=== PATIENT | male | born 2000 | race Hispanic/Latino ===

== ENCOUNTER 2018-07-09 10:11 | Emergency (ER) | payer OTHER, SELFPAY ==
[2018-07-09 10:34] VITALS: BP 140/80; PULSE 90; RESP 18; TEMP 37.1; O2SAT 99; BMI 23.3
--- NOTE | 2018-07-09 10:43 | ED.BURNSMOKE ---
HPI - Burn/Smoke Inhalation General Chief complaint: Burn/Smoke Inhalation Stated complaint: HAND INJURY WITH LIQUID NITROGEN Time Seen by Provider: 07/09/18 10:43 Source: patient Mode of arrival: ambulatory Limitations: no limitations History of Present Illness HPI Narrative: Patient is a left-handed young male who presents with all right pinky and ring finger blistering. 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 He noticed a burn then however the blistering got significantly worse today. He denies numbness or tingling or pain. MD Complaint: burn Related Data Allergies Allergy/AdvReac Type Severity Reaction Status Date / Time Penicillins Allergy Hives Verified 07/09/18 10:39 Review of Systems Review of Systems All systems reviewed & are unremarkable except as noted in HPI and below Constitutional Denies chills, Denies fever(s), Denies lethargy and Denies weakness Musculoskeletal Denies numbness and Denies tingling Integumentary/Breasts Reports as per HPI, Reports skin swelling and Reports wounds Neurologic Denies numbness, Denies tingling and Denies weakness [facility] Medical History Healthy adult (Acute) Social History Smoking Status: Never smoker alcohol intake: never substance use type: does not use Comment: Tetanus up-to-date Exam Initial Vital Signs Initial Vital Signs: Vital Signs Temperature 98.7 F 07/09/18 10:34 Pulse Rate 90 07/09/18 10:34 Respiratory Rate 18 07/09/18 10:34 Blood Pressure 140/80 H 07/09/18 10:34 Pulse Oximetry 99 07/09/18 10:34 GENERAL: Well-appearing, well-nourished and in no acute distress. CARDIOVASCULAR: peripheral pulses in tact, cap refill <2 sec RESPIRATORY: No respiratory distress, speaks in full sentences without difficulty EXTREMITIES: Normal range of motion, no clubbing or edema. Neurovascularly intact Decreased range of motion of the right pinky finger due to a blistering no pain sensation intact at the distal tip cap refill less than 2 sec NEUROLOGICAL: Cranial nerves II through XII grossly intact. Normal gait and speech. SKIN: Warm, dry, no petechiae, no rashes or lesions. Skin Hand Right Back: 1. Circumferential blistering 2. Small amount of blistering noted on ring finger as well Extrem Hand Right Front: 1. Blackening a blister circumferential 2. Blister noted ring finger 3. Blister 4. Blister 5. Blister Course Vital Signs - 8 hr 07/09/18 10:34 Temperature 98.7 F Pulse Rate 90 Respiratory Rate 18 Blood Pressure 140/80 H Pulse Oximetry 99 MDM - Burn/Smoke Inhalation MDM Narrative Medical decision making narrative: I spoke with Dr. Evans, burn fellow at at [facility] who has reviewed the images, with the patient's permission the email. Recommends patient be transferred to [facility] immediately for debridement. Possible surgery possible admission. Discharge Plan Departure Patient Disposition: [facility] Clinical Impression: Burn of right hand including fingers Activity Restrictions/Additional Instructions: -go directly to a [facility] they are expecting you Do not eat or drink Do will likely require admission and possible surgery however these decisions are to be made by the burn physician
[2018-07-09 11:49] VITALS: BP 158/98; PULSE 73; RESP 16; TEMP 37; O2SAT 100
== END 2018-07-09 11:49 | disposition short-term general hospital (02) ==
PROVIDERS: Emergency Provider Emergency Medicine
DX: T23.001A Burn of unspecified degree of right hand, unspecified site, initial encounter (principal); T23.031A Burn of unspecified degree of multiple right fingers (nail), not including thumb, initial encounter; W93.11XA Contact with liquid air, initial encounter
CPT/HCPCS: 99282

== ENCOUNTER → 2018-07-22 14:10 | Outpatient (CLI) | payer OTHER, SELFPAY | PROVIDERS: PCP General Practice; Visit Provider Internal Medicine | DX: T23.631A Corrosion of second degree of multiple right fingers (nail), not including thumb, initial encounter (principal) | CPT/HCPCS: 16020 ==

== ENCOUNTER → 2018-07-29 13:11 | Outpatient (CLI) | payer OTHER, SELFPAY ==
--- NOTE | 2018-07-29 | OV.WND_ITS ---
Progress Note Details Patient Name: Jay Fine Patient Number: [id number] PatientPatientDate: 07/29/2018 Clinician: Aura Arciniega Physician / Flat Hammerer: oJnathon Mehta SUBJECTIVE Chief Complaint This information was obtained from the patient Right Hand Chemical burn 07/07/18. Allergies penicillin (Severity: Moderate, Reaction: Rash) HPI This information was obtained from the patient 07/29/18. Seen by Dr. Mehta. The patient does not report pain or significant drainage associated with the right hand chemical burn since his last visit. 07/22/18. Seen by Dr. Mehta. The patient does not report pain or significant drainage associated with the right hand chemical burn since his last visit. He was not able to start his doxycycline as prescribed due to an error in the e-prescription being sent. 07/15/18. Seen by Dr. Mehta. The patient's new to our clinic and presents with a right hand chemical burn than occurred about 9 days ago when he spilled liquid nitrogen on the palm of his gloved hand while assisting at the [facility]. He does not report significant pain today and was seen at the [facility] burn center without an explicit plan other than to follow up at this week in clinic. Complaints and Symptoms This information was obtained from the patient Patient complains of: General Notes: I have reviewed and concur with the Review of Systems and Past Family Social History documents completed by the clinician, I have reviewed and concur with the Wound Assessment document completed by the clinician Integumentary (Hair/Skin/Nails): Open Sore Prior Wound History: Drainage, Erythema, Pain Patient denies complaints or symptoms related to: Constitutional Symptoms (General Health): Chills, Fever Hematologic/Lymphatic: Bleeding / Clotting Disorders, Bleeding Tendency OBJECTIVE Constitutional Vital signs reviewed and noted. Height/Length: 66 in (167.64 cm), Weight: 145 lbs (65.91 kgs), BMI: 23.4, Temperature: 98.3 ?F (36.83 ?C), Pulse: 63 bpm, Respiratory Rate: 18 breaths/min, Blood Pressure: 131/85 mmHg, Pulse Oximetry: 98 %. Ears, Nose, Mouth, and Throat: No clinically significant hearing loss on informal examination. Integumentary (Hair, Skin) Refer to appropriate clinician wound documentation for this visit; blistering noted in the periwound area/s. Wound #6 Right Finger - fifth is an acute Full Thickness Burn, chemical and has received a status of Not Healed. Subsequent wound encounter measurements are 0.4cm length x 0.7cm width x 0.1cm depth, with an area of 0.28 sq cm and a volume of 0.028 cubic cm. No tunneling has been noted. No sinus tract has been noted. No undermining has been noted. There is a small amount of serosanguineous drainage noted which has no odor. The patient reports a wound pain of level 0/10. The wound margin is irregular. Wound bed has Yes epithelialization, No eschar, Yes slough, Yes bright red, pink, firm granulation. The periwound skin texture is normal. The periwound skin moisture is normal. The periwound skin color is normal. The temperature of the periwound skin is WNL. Periwound skin does not exhibit signs or symptoms of infection. Local Pulse is Normal. Neurological: Cranial nerves grossly intact with symmetric function normal by informal observation.. ASSESSMENT Active Problems ICD-10 (Encounter Diagnosis) T23.201D - Burn of second degree of right hand, unspecified site, subsequent encounter PROCEDURES Wound #6 Wound #6 (Burn, chemical) is located on the right finger - fifth. A selective debridement with a total area debrided of 0.28 sq cm was performed by Jonathon Mehta MD. Dermis and Epidermis were removed. The following instrument(s) were used: forceps and scissors. Pain control was achieved using 4% Lido. A time out was conducted prior to the start of the procedure. No bleeding occurred. The procedure was tolerated well with a pain level of 0 throughout and a pain level of 0 following the procedure. Post Debridement Measurements: 0.4cm length x 0.7cm width x 0.2cm depth; with an area of 0.28 sq cm and a volume of 0.056 cubic cm; PLAN Wound Orders: Wound #6 Right Finger - fifth Anesthetic Topical Xylocaine to wound bed. - In clinic. Cleanser Cleanse Wound: - Normal saline and gauze. May use distilled water at home. May Shower. - Keep covered in shower with glove, or cast protector. Topical Treatments Antibiotic/Antimicrobial Ointment/Cream. - Triple antibiotic ointment. Dressings Primary dressing: - Foam to cover. Cover and secure with: - Conform wrap gauze, and netting. Change Dressing: - Every other day. Follow-Up Appointments Return Appointment: - - One week. Other information: If you develop fever, chills, increased pain, drainage, redness or swelling please call our office. If after hours, respond to the ER. Should you experience any significant changes in your wound(s) or have any questions regarding your home care instructions please contact the wound center @ [phone]. If after hours, contact your primary care physician or go to the hospital emergency room. Scribing Attestation I attest, as the nurse, that I scribed these orders for the physician. I've reviewed the clinician's documentation and agree with the evaluation and plan as written. In addition the patient's wound demonstrates evidence of non-viable devitalized tissue which will continue to benefit from sharp debridement to help promote granulation and expedite healing. Electronic Signature(s) Signed By: Date: Jonathon Mehta MD 07/30/2018 06:42:26 Entered By: Jonathon Mehta on 07/30/2018 06:28:38
== END ==
PROVIDERS: PCP General Practice; Visit Provider Internal Medicine
DX: T23.221A Burn of second degree of single right finger (nail) except thumb, initial encounter (principal)
CPT/HCPCS: 16020

== ENCOUNTER → 2018-08-04 14:17 | Outpatient (CLI) | payer OTHER, SELFPAY | PROVIDERS: PCP General Practice; Visit Provider Internal Medicine | DX: T23.221D Burn of second degree of single right finger (nail) except thumb, subsequent encounter (principal) | CPT/HCPCS: 99212 ==

== ENCOUNTER 2018-08-12 12:30 | Outpatient (RCR) | payer OTHER, SELFPAY ==
--- NOTE | 2018-07-20 10:38 | OT.OP.EVAL ---
Visit Care Team Role Provider Type Roberto Angulo MD Attending Provider Non-Staff Primary Care Provider Specialty: Family Practice Address: [address] [place] [address], [id number] Email: Occupational Therapy Initial Evaluation OT Outpatient Adult Evaluation Start: 07/20/18 09:42 Freq: Status: Active Protocol: Document 07/15/18 13:48 AMS (Rec: 07/20/18 10:38 AMS [email or web address]) General Information Visit Start Time 12:30 Visit Stop Time 13:15 Total Visit Minutes 45 Visit Number [id number] Plan of Care Dates 07/15/18-10/07/18 Insurance Information ; 12 visits authorized Treatment Setting Outpatient Care Note Type Initial Evaluation Referring Physician Roberto Angulo MD Reason for Referral Chemical burn to right hand, fingers. 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 Patient reported that he was wearing the appropriate gloves; however, the gloves became saturated and he suffered a burn. By , July 09, pt's right hand and fingers were significantly more swollen then day of initial onset of symptoms. Thus, he was taken to the ER. He was transferred from [facility] to [facility]. At [facility] he underwent surgical debridement. Since debridement, pt has been changing dressings daily and intermittently completing range of motion exercises throughout the day (prayer pose, fist, and hook fist). Pt has appt w/ wound care clinic following OT initial evaluation today. Pt completed [facility] History form. Completed form placed in paper chart; pt indicated taking Oxycodone for pain (10 mg). History of Therapy Instructed on basic range of motion exercises at time of debridement. No other therapy. See above. Therapy Pain Assessment When Pain Assessed pre-tx Pain Present Pain Reported Right Finger Intensity 2 Scale Used Numeric (1 - 10) Patient Questionnaires Quick Dash UE Score 72.7 Quick Dash UE Impairment 60 to 79% Impaired (Score 60- 79) IADLs Comments Impaired Vocational Ability Duties modified Skill Level Impaired Integument Observations Pictures taken at time of initial evaluation. See paper chart for details. Bandaging removed and replaced w/ new bandages. Bandaging of 5th digit not removed on this treatment date; will remove bandaging and begin treatment as appropriate (increased healing of wound). Receiving Wound Care Yes Observations Swelling Location R hand/digits Functional Wrist/Hand Scan Yes/No No: Impaired Comment Right Yes/No No: Stiffness of digits present Comment Right Yes/No No: Impaired Comment Right Overall Observations Stiffness of digits of R hand due to wounds. Adduction/piggy backing of the R 5th digit observed w/ formation of straight fist and standard fist. Goals Objective Measurements Decreased frequency w/ execution of recommended home exercises/ROM. Preference for active vs passive ROM exercises at this time (thus, prayer pose modified to increase compliance). Guarding of R hand/digits. Protective posturing. Treatment Home exercise program initiated. Focus on active range of motion and reviewed importance of completing range of motion exercise on a hourly, daily basis. Continued hook fist, standard fist recommended, as well as TT w/ R hand blocking and use of towel and active digit extension use of TT. Patient denied questions. Short Term Goals 1. 0-70 degrees R second digit DIPJ AROM 2. 0-10 degrees R second digit MCPJ active hyperextension 3. 0-10 degrees R third digit MCPJ active hyperextension 4. 0-10 degrees R fourth digit MCPJ active hyperextension 5. Pt will be able to execute straight fist x 5 repetitions with the right hand, without use of compensatory patterns, in preparation for large object manipulation with active engagement of the 5th digit. Care Home Goals 1. Pt will be able to return to full-time active duty without restrictions. 2. Pt will demonstrate improved functional abilities of non-dominant R hand, as evidenced by score of 5.0 or less on QuickDASH UE Outcome Measure. 3. Pt will be mod I with HEP. 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 Patient reported that he was wearing the appropriate gloves; however, the gloves became saturated and he suffered a burn. By July 09, pt's right hand and fingers were significantly more swollen then day of onset . Thus, he was taken to the ER . He was transferred from [facility] to [facility]. At [facility] he underwent surgical debridement. Since debridement, pt has been changing dressings daily and intermittently completing range of motion exercises throughout the day (prayer pose, fist, and hook fist). Pt has appt w/ wound care clinic following OT initial evaluation today. Pt indicated taking Oxycodone for pain (10 mg). PMH: Nothing listed PLOF: Independent w/ completion of BADLS and IADLS; active duty w/ no restrictions. Evaluation findings: L hand dominant young male; wounds of the R hand; (+) changing of dressings on daily basis as per recommended; decreased frequency of completion of home range of motion exercises ; adduction/piggy backing of the R 5th digit observed w/ formation of fist; preference for active vs passive ROM exercises at this time (thus, prayer pose modified); pain at rest; stiffness of digits/ hand; decreased range of motion of digits of R hand; protective/guarding of R hand; swelling of R hand; decreased independence w/ active engagement in daily meaningful activities. Pt would likely benefit from skilled outpt OT to increase functional independence and ability to engage in meaningful activities without limitations, including active duty assignments, with active incorporation of the right hand. Home Exercise Program Home exercise program initiated. Focus on active range of motion and reviewed importance of completing range of motion exercise on a hourly, daily basis. Continued hook fist, standard fist recommended, as well as TT w/ R hand blocking and use of towel and active digit extension use of TT. Patient denied questions. Comment 12 wks; dependent upon rate of healing of wounds Treatment Frequency Once a Week Comment increase to 2 x wk; as wounds heal Therapeutic Contents Active Range of Motion Client Education Functional Activities Home Exercise Program Manual Therapy Education Neuromuscular Re-Education Self-Care Stretching/Flexibility Activities Therapeutic Activities Therapeutic Exercises Modalities Sensory Re-education Modalities As Needed As Prescribed Types of Modalities Contrast Bath E-Stim Functional Stimulation (FES) Ice Massage Skin Care Bandaging Ultrasound Patient Instruction Home Exercise Program Plan of Care Questions/Concerns Other Patient Recommendations Continue with Current Program Advance per Rehabilitation Protocol Other Suggested Referrals Wound care Occupational Therapy Assessment OT Outpatient Range of Motion Start: 07/20/18 09:42 Freq: Status: Active Protocol: Document 07/15/18 13:48 AMS (Rec: 07/20/18 10:38 AMS [email or web address]) ROM - Finger Goniometric Finger Measured in Degrees Right Second Finger ROM WFL No PIP Flexion Active (degrees) 113 PIP Extension Active (degrees) 0 DIP Flexion Active (70-90 degrees) 63 L DIP Extension Active (0 degrees) 0 H Left Second Finger ROM WFL Yes ROM Limitations Comments Right finger ROM limitations 0 degrees active L 2nd - 5th digit hyperextension Will need to take additional ROM measurements as wounds heal/as able
--- NOTE | 2018-07-22 14:19 | OT.OP.TRT ---
Visit Care Team Role Provider Type Roberto Angulo MD Attending Provider Non-Staff Primary Care Provider Specialty: Family Practice Address: [address] [place] [address], [id number] Email: Occupational Therapy Treatment Note OT Outpatient Treatment Note - Adult Start: 07/20/18 09:42 Freq: Status: Active Protocol: Document 07/22/18 13:49 AMS (Rec: 07/22/18 14:01 AMS [email or web address]) OT Outpatient Adult Treatment Note Session Time Visit Start Time 12:30 Visit Stop Time 13:15 Total Visit Minutes 45 Visit Information Visit Number 12/[id number] Plan of Care Dates 07/15/18-10/07/18 Insurance Information ; 12 visits authorized Setting Treatment Setting Outpatient Care Visit Type Note Type Treatment Note General Information General Information 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 Patient reported that he was wearing the appropriate gloves; however, the gloves became saturated and he suffered a burn. By July 09, pt's right hand and fingers were significantly more swollen then day of initial onset of symptoms. Thus, he was taken to the ER. He was transferred from [facility] to [facility]. At [facility] he underwent surgical debridement. Since debridement, pt has been changing dressings daily and intermittently completing range of motion exercises throughout the day (prayer pose, fist, and hook fist). Pt has appt w/ wound care clinic following OT initial evaluation today. Pt completed [facility] History form. Completed form placed in paper chart; pt indicated taking Oxycodone for pain (10 mg). - Subjective Identification Type Name Picture Observations I have an appointment with wound care today at 2:00 per Jay. Yes I have been doing my exercises. Chief Complaint(s) Restricts Loss of Function Marked Degree Effect on Activity Marked Degree Effect on Daily Life Marked Degree Patient/Caregiver Compliance with Home Good Exercise Program - Objective Objective Measurements ROM measurements taken for R hand. See ROM section for details. Slight medial rotation of R second digit; instructed on passive exercise . Pt denied questions. Short Term Goals 1. 0-80 degrees R second digit DIPJ AROM. 07/22/18= GOAL UPGRADED 2. 0-20 degrees R fourth digit MCPJ active hyperextension. = GOAL UPGRADED 3. 0-20 degrees R fifth digit MCPJ active hyperextension. 10/27= GOAL UPGRADED 4. 0-90 degrees R fifth digit MCPJ active flexion. 07/22/18= New Goal 5. 0-90 degrees R fifth digit PIPJ active flexion. 07/22/18= New Goal 6. 0-70 degrees R fifth digit DIPJ active flexion. 07/22/18= New Goal 7. Pt will be able to execute straight fist x 5 repetitions with R hand, without use of compensatory patterns, in preparation for large object manipulation with active engagement of the 5th digit. = 25% met GOALS MET 0-70 degrees R second digit DIPJ AROM *MET 07/22/18 (0-77) 0-10 degrees R second digit MCPJ active hyperextension * MET 07/22/18 (0-53) 0-10 degrees R third digit MCPJ active hyperextension * MET 07/22/18 (0-53) 0-10 degrees R fourth digit MCPJ active hyperextension * MET 07/22/18 (0-10) [employer] Goals 1. Pt will be able to return to full-time active duty without restrictions. 2. Pt will demonstrate improved functional abilities of non-dominant R hand, as evidenced by score of 5.0 or less on QuickDASH UE Outcome Measure. 3. Pt will be mod I with HEP. 07/22/18= HEP upgraded - Exercises 2 Descriptor ROM measurements taken Active tendon gliding exercises 1 Descriptor HEP Focus on maintaining palmar space. Instructed in passive ROM exercise. Pt denied questions. Began education re: sensory program as soon as palm and R tip/pad wounds fully heal. Will need to review. Manual Therapy Manual Therapy Joint mobs to address medial rotation of R 2nd digit; right 2nd ROM w/ focus on DIPJ flex . Palmar tightness noted radially; manual therapy to maintain palmar space. Unable to begin scar tissue mobilization at this time. Wounds still healing. - Assessment Patient Response to Treatment Good Rehab Potential Good Impairments Identified ADLs Coordination/Dexterity Flexibility Functional Activities Integumentary Status Motor Function Weakness Range of Motion Recreational Activities Meaningful Activities Stiffness Swelling Soft Tissue Mobility Motor Planning Eye-Hand Coordination Assessment of Overall Progress Improving Assessment of Improvement Improving active range of motion; improving carry-over of HEP. This is evidenced by pt meeting short term goals on this treatment date. Upgrading of goals appropriately. Medial rotation of R 2nd digit given healing of distal palmar wound; thus, instructed in PROM exercise to maintain palmar space. Recommend upgrading HEP/ exercises/activities as able given healing wounds. Home Exercise Program Please refer to treatment section of note for specific details. Upgraded on this date . Reviewed with Patient/Caregiver Goals Progress Being Made Home Exercise Program Patient/Caregiver Understanding Good - Plan Therapy Recommendations Continue with Current Program Advance per Rehabilitation Protocol Occupational Therapy Assessment OT Outpatient Range of Motion Start: 07/20/18 09:42 Freq: Status: Active Protocol: Document 07/22/18 13:49 AMS (Rec: 07/22/18 14:01 AMS [email or web address]) ROM - Finger Goniometric Finger Measured in Degrees Left Fifth Finger ROM WFL Yes Left Fourth Finger ROM WFL Yes Left Third Finger ROM WFL Yes Right Fifth Finger ROM WFL No MCP Flexion Active (degrees) 80 MCP Extension Active (degrees) 8 PIP Flexion Active (degrees) 80 PIP Extension Active (degrees) 0 DIP Flexion Active (70-90 degrees) 53 L DIP Extension Active (0 degrees) 0 H Right Fourth Finger ROM WFL No MCP Flexion Active (degrees) 103 MCP Extension Active (degrees) 10 PIP Flexion Active (degrees) 97 PIP Extension Active (degrees) 0 DIP Flexion Active (70-90 degrees) 72 DIP Extension Active (0 degrees) 0 H Right Third Finger ROM WFL No MCP Flexion Active (degrees) 120 MCP Extension Active (degrees) 53 PIP Flexion Active (degrees) 120 PIP Extension Active (degrees) 0 DIP Flexion Active (70-90 degrees) 83 DIP Extension Active (0 degrees) 0 H Right Second Finger ROM WFL No MCP Flexion Active (degrees) 112 MCP Extension Active (degrees) 53 PIP Flexion Active (degrees) 120 PIP Extension Active (degrees) 0 DIP Flexion Active (70-90 degrees) 77 DIP Extension Active (0 degrees) 0 H Left Second Finger ROM WFL Yes ROM Limitations Comments Initial evaluation: R 2nd PIPJ 0-113 R 2nd DIPJ 0-63
--- NOTE | 2018-07-29 13:29 | OT.OP.TRT ---
Visit Care Team Role Provider Type Roberto Angulo MD Attending Provider Non-Staff Primary Care Provider Specialty: Family Practice Address: [address] [place] [address], [id number] Email: Occupational Therapy Treatment Note OT Outpatient Treatment Note - Adult Start: 07/20/18 09:42 Freq: Status: Active Protocol: Document 07/29/18 13:14 AMS (Rec: 07/29/18 13:29 AMS [email or web address]) OT Outpatient Adult Treatment Note Session Time Visit Start Time 12:28 Visit Stop Time 13:12 Total Visit Minutes 44 Visit Information Visit Number [id number] Plan of Care Dates 07/15/18-10/07/18 Insurance Information ; 12 visits authorized Setting Treatment Setting Outpatient Care Visit Type Note Type Treatment Note General Information General Information 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 Patient reported that he was wearing the appropriate gloves; however, the gloves became saturated and he suffered a burn. By July 09, pt's right hand and fingers were significantly more swollen then day of initial onset of symptoms. Thus, he was taken to the ER. He was transferred from [facility] to [facility]. At [facility] he underwent surgical debridement. Since debridement, pt has been changing dressings daily and intermittently completing range of motion exercises throughout the day (prayer pose, fist, and hook fist). Pt has appt w/ wound care clinic following OT initial evaluation today. Pt completed [facility] Health History form. Completed form placed in paper chart; pt indicated taking Oxycodone for pain (10 mg). - Subjective Identification Type Name Picture Observations I have an appointment with wound care right after this at 1:15 per Jay. Yes I have been doing my exercises. Patient/Caregiver Compliance with Home Good Exercise Program - Objective Objective Measurements MMT of wrist/fingers taken for right hand/wrist; please refer to Strength Testing section for details. Decreased R wrist/finger strength. Decreased active DIPJ flexion of 4th digit; initiated exercise. Pt denied questions. Short Term Goals 1. 0-80 degrees R second digit DIPJ AROM. 07/22/18= GOAL UPGRADED 2. 0-20 degrees R fourth digit MCPJ active hyperextension. = GOAL UPGRADED 3. 0-20 degrees R fifth digit MCPJ active hyperextension. 10/27= GOAL UPGRADED 4. 0-90 degrees R fifth digit MCPJ active flexion. 07/22/18= New Goal 5. 0-90 degrees R fifth digit PIPJ active flexion. 07/22/18= New Goal 6. 0-70 degrees R fifth digit DIPJ active flexion. 07/22/18= New Goal 7. Pt will be able to execute straight fist x 5 repetitions with R hand, without use of compensatory patterns, in preparation for large object manipulation with active engagement of the 5th digit. = 25% met GOALS MET 0-70 degrees R second digit DIPJ AROM *MET 07/22/18 (0-77) 0-10 degrees R second digit MCPJ active hyperextension * MET 07/22/18 (0-53) 0-10 degrees R third digit MCPJ active hyperextension * MET 07/22/18 (0-53) 0-10 degrees R fourth digit MCPJ active hyperextension * MET 07/22/18 (0-10) Back Closer Goals 1. Pt will be able to return to full-time active duty without restrictions. 2. Pt will demonstrate improved functional abilities of non-dominant R hand, as evidenced by score of 5.0 or less on QuickDASH UE Outcome Measure. 3. Pt will be mod I with HEP. 07/29/18= HEP upgraded - Exercises 6 Descriptor Resisted forearm sup/pronation Side Right Body Position Sitting Sets 2 Repetitions 10 Resistance Provided by therapist Complexity Upgraded 5 Descriptor Resisted finger abd/add Side Right Body Position Sitting Sets 2 Repetitions 10 Resistance Provided by therapist Complexity Upgraded 4 Descriptor Resisted wrist movements RD, UD, flexion, extension Side Right Body Position Sitting Sets 2 Repetitions 10 Resistance Provided by therapist Complexity Upgraded 3 Descriptor Resisted digit ext/flex (exclusion of 5th digit) Side Right Body Position Sitting Sets 2 Repetitions 10 Resistance Provided by therapist Complexity Upgraded 2 Descriptor Active tendon gliding exercises 1 Descriptor HEP Instructed in 'bear claw' exercise to address flexion of 4th DIPJ; instructed in resisted finger/wrist exercises w/ use of towel (as needed for skin protection) and contralateral hand (left hand). Instructed in grading resistance for digit extension . RD, UD, wrist flex, wrist ext covered. Patient denied questions. Manual Therapy Manual Therapy Joint mobs to address medial rotation of R 2nd digit. Decreased palmar tightness noted radially; recommend continue to monitor. 4th digit DIPJ flex, tendon gliding. - Assessment Patient Response to Treatment Good Rehab Potential Good Impairments Identified ADLs Coordination/Dexterity Flexibility Functional Activities Integumentary Status Motor Function Weakness Range of Motion Recreational Activities Meaningful Activities Stiffness Swelling Soft Tissue Mobility Motor Planning Eye-Hand Coordination Assessment of Overall Progress Improving Assessment of Improvement Improving carry-over of HEP. Upgraded HEP. Decreased strength of right forearm, wrist, fingers. Decreased functional abilities of the right hand compared to PLOF. Wounds are still healing at this time; recommend progressing exercises as able. Home Exercise Program Please refer to treatment section of note for specific details. Upgraded on this date . Reviewed with Patient/Caregiver Goals Progress Being Made Home Exercise Program Patient/Caregiver Understanding Good - Plan Therapy Recommendations Continue with Current Program Advance per Rehabilitation Protocol Occupational Therapy Assessment OT Outpatient Muscle Testing Start: 07/20/18 09:42 Freq: Status: Active Protocol: Document 07/29/18 13:14 AMS (Rec: 07/29/18 13:29 AMS [email or web address]) Elbow/Forearm Strength Elbow and Forearm Manual Muscle Testing Left Pronation 5 Normal Supination 5 Normal Right Pronation 4+ Good+ Supination 4- Good- Wrist Strength Wrist Manual Muscle Testing Left Flexion (C7) 5 Normal Extension (C6) 5 Normal Ulnar Deviation 5 Normal Radial Deviation 5 Normal Right Flexion (C7) 4- Good- Extension (C6) 3+ Fair+ Ulnar Deviation 3+ Fair+ Radial Deviation 4- Good- Finger/Thumb Strength Finger Manual Muscle Testing Right Fifth Comments Wound still healing Right Second Flexion (fingers C8) 4- Good- Extension (thumb C8) 4- Good- Adduction 4- Good- Abduction (fingers T1) 4- Good- Right Third Flexion (fingers C8) 4 Good Extension (thumb C8) 4 Good Adduction 4 Good Abduction (fingers T1) 4 Good Right Fourth Flexion (fingers C8) 3+ Fair+ Extension (thumb C8) 3+ Fair+ Adduction 3+ Fair+ Abduction (fingers T1) 3+ Fair+
--- NOTE | 2018-08-04 16:18 | OT.OP.TRT ---
Visit Care Team Role Provider Type Roberto Angulo MD Attending Provider Non-Staff Primary Care Provider Specialty: Family Practice Address: [address] [place] [address], [place], [address] Email: Occupational Therapy Treatment Note OT Outpatient Treatment Note - Adult Start: 07/20/18 09:42 Freq: Status: Active Protocol: Document 08/04/18 16:01 AMS (Rec: 08/04/18 16:17 AMS [email or web address]) OT Outpatient Adult Treatment Note Session Time Visit Start Time 13:30 Visit Stop Time 14:13 Total Visit Minutes 43 Visit Information Visit Number 02/[id number] Plan of Care Dates 07/15/18-10/07/18 Insurance Information ; 12 visits authorized Setting Treatment Setting Outpatient Care Visit Type Note Type Treatment Note General Information General Information 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 Patient reported that he was wearing the appropriate gloves; however, the gloves became saturated and he suffered a burn. By July 09, pt's right hand and fingers were significantly more swollen then day of initial onset of symptoms. Thus, he was taken to the ER. He was transferred from [facility] to [facility]. At [facility] he underwent surgical debridement. Since debridement, pt has been changing dressings daily and intermittently completing range of motion exercises throughout the day (prayer pose, fist, and hook fist). Pt has appt w/ wound care clinic following OT initial evaluation today. Pt completed [facility] Health History form. Completed form placed in paper chart; pt indicated taking Oxycodone for pain (10 mg). - Subjective Identification Type Name Picture Observations I went to [facility] on Friday and they determined that my little finger is healing and that I do not need a skin graft per Jay. This may be my last visit with wound care. Chief Complaint(s) Restricts Loss of Function Marked Degree Effect on Activity Marked Degree Effect on Daily Life Marked Degree Patient/Caregiver Compliance with Home Good Exercise Program - Objective Objective Measurements MMT of R 5th digit taken on this date; please refer to Strength Testing section for details. ROM measurements taken of R 5th digit; please refer to ROM section for details. Decreased R 5th digit strength. Decreased hand/ finger strength. Poor dissociation between ulnar and radial sides of hand; impaired coordination of digits of right hand. Short Term Goals 1. 0-80 degrees R second digit DIPJ AROM. 07/22/18= GOAL UPGRADED 2. 0-20 degrees R fourth digit MCPJ active hyperextension. = GOAL UPGRADED 3. 0-20 degrees R fifth digit MCPJ active hyperextension. 10/27= GOAL UPGRADED 4. 0-90 degrees R fifth digit MCPJ active flexion. 07/22/18= New Goal 5. 0-90 degrees R fifth digit PIPJ active flexion. 07/22/18= New Goal 6. 0-70 degrees R fifth digit DIPJ active flexion. 07/22/18= New Goal 7. Pt will be able to execute straight fist x 5 repetitions with R hand, without use of compensatory patterns, in preparation for large object manipulation with active engagement of the 5th digit. = 25% met GOALS MET 0-70 degrees R second digit DIPJ AROM *MET 07/22/18 (0-77) 0-10 degrees R second digit MCPJ active hyperextension * MET 07/22/18 (0-53) 0-10 degrees R third digit MCPJ active hyperextension * MET 07/22/18 (0-53) 0-10 degrees R fourth digit MCPJ active hyperextension * MET 07/22/18 (0-10) Orthodontic Laboratory Technician Goals 1. Pt will be able to return to full-time active duty without restrictions. 2. Pt will demonstrate improved functional abilities of non-dominant R hand, as evidenced by score of 5.0 or less on QuickDASH UE Outcome Measure. 3. Pt will be mod I with HEP. 07/29/18= HEP upgraded - Exercises 8 Descriptor Coordination of digits of the R hand; separation of the 2 sides of the hand. Complexity Upgraded 7 Descriptor ROM by therapist Digits 1-5 Complexity Upgraded 6 Descriptor Resisted forearm sup/pronation Side Right Body Position Sitting Sets 2 Repetitions 10 Resistance Provided by therapist Complexity Upgraded 5 Descriptor Resisted finger abd/add Side Right Body Position Sitting Sets 2 Repetitions 10 Resistance Provided by therapist Complexity Upgraded 4 Descriptor Resisted wrist movements RD, UD, flexion, extension Side Right Body Position Sitting Sets 2 Repetitions 10 Resistance Provided by therapist Complexity Upgraded 3 Descriptor Resisted digit ext/flex (exclusion of 5th digit) Side Right Body Position Sitting Sets 2 Repetitions 10 Resistance Provided by therapist Complexity Upgraded 2 Descriptor Active tendon gliding exercises Complexity No Change 1 Descriptor HEP Instructed in isolated movement of each digit of the R hand; instructed in separation of the 2 sides of the hand (radial and ulnar side w/ and w/out resistance applied). Instructed in gross grasp strengthening utilizing glove w/ theraputty. Provided pt w/ personal medium firm green theraputty. Pt denied questions. Complexity Upgraded - Assessment Patient Response to Treatment Good Rehab Potential Good Impairments Identified ADLs Coordination/Dexterity Flexibility Functional Activities Integumentary Status Motor Function Weakness Range of Motion Recreational Activities Meaningful Activities Stiffness Swelling Soft Tissue Mobility Motor Planning Eye-Hand Coordination Assessment of Overall Progress Improving Assessment of Improvement Upgraded HEP. Impaired motor planning of the digits of the affected hand; poor dissociation between 2 sides of the hand. Decreased strength and ROM of the 5th digit. Home Exercise Program Please refer to treatment section of note for specific details. Upgraded on this date . Reviewed with Patient/Caregiver Goals Progress Being Made Home Exercise Program Patient/Caregiver Understanding Good - Plan Therapy Recommendations Continue with Current Program Advance per Rehabilitation Protocol Visit Care Team Role Provider Type Roberto Angulo MD Attending Provider Non-Staff Primary Care Provider Specialty: [facility] Address: [address] [place] [address], [facility] Email: Occupational Therapy Treatment Note OT Outpatient Treatment Note - Adult Start: 07/20/18 09:42 Freq: Status: Active Protocol: Document 08/04/18 16:01 [facility] (Rec: 08/04/18 16:17 [facility] [email or web address]) OT Outpatient Adult Treatment Note Session Time Visit Start Time 13:30 Visit Stop Time 14:13 Total Visit Minutes 43 Visit Information Visit Number [id number] Plan of Care Dates 07/15/18-10/07/18 Insurance Information ; 12 visits authorized Setting Treatment Setting Outpatient Care Visit Type Note Type Treatment Note General Information General Information 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 Patient reported that he was wearing the appropriate gloves; however, the gloves became saturated and he suffered a burn. By July 09, pt's right hand and fingers were significantly more swollen then day of initial onset of symptoms. Thus, he was taken to the ER. He was transferred from [facility] to [facility]. At [facility] he underwent surgical debridement. Since debridement, pt has been changing dressings daily and intermittently completing range of motion exercises throughout the day (prayer pose, fist, and hook fist). Pt has appt w/ wound care clinic following OT initial evaluation today. Pt completed [facility] Health History form. Completed form placed in paper chart; pt indicated taking Oxycodone for pain (10 mg). - Subjective Identification Type Name Picture Observations I went to [facility] on Friday and they determined that my little finger is healing and that I do not need a skin graft per Jay. This may be my last visit with wound care. Chief Complaint(s) Restricts Loss of Function Marked Degree Effect on Activity Marked Degree Effect on Daily Life Marked Degree Patient/Caregiver Compliance with Home Good Exercise Program - Objective Objective Measurements MMT of R 5th digit taken on this date; please refer to Strength Testing section for details. ROM measurements taken of R 5th digit; please refer to ROM section for details. Decreased R 5th digit strength. Decreased hand/ finger strength. Poor dissociation between ulnar and radial sides of hand; impaired coordination of digits of right hand. Short Term Goals 1. 0-80 degrees R second digit DIPJ AROM. 07/22/18= GOAL UPGRADED 2. 0-20 degrees R fourth digit MCPJ active hyperextension. = GOAL UPGRADED 3. 0-20 degrees R fifth digit MCPJ active hyperextension. 10/27= GOAL UPGRADED 4. 0-90 degrees R fifth digit MCPJ active flexion. 07/22/18= New Goal 5. 0-90 degrees R fifth digit PIPJ active flexion. 07/22/18= New Goal 6. 0-70 degrees R fifth digit DIPJ active flexion. 07/22/18= New Goal 7. Pt will be able to execute straight fist x 5 repetitions with R hand, without use of compensatory patterns, in preparation for large object manipulation with active engagement of the 5th digit. = 25% met GOALS MET 0-70 degrees R second digit DIPJ AROM *MET 07/22/18 (0-77) 0-10 degrees R second digit MCPJ active hyperextension * MET 07/22/18 (0-53) 0-10 degrees R third digit MCPJ active hyperextension * MET 07/22/18 (0-53) 0-10 degrees R fourth digit MCPJ active hyperextension * MET 07/22/18 (0-10) Orthodontic Laboratory Technician Goals 1. Pt will be able to return to full-time active duty without restrictions. 2. Pt will demonstrate improved functional abilities of non-dominant R hand, as evidenced by score of 5.0 or less on QuickDASH UE Outcome Measure. 3. Pt will be mod I with HEP. 07/29/18= HEP upgraded - Exercises 8 Descriptor Coordination of digits of the R hand; separation of the 2 sides of the hand. Complexity Upgraded 7 Descriptor ROM by therapist Digits 1-5 Complexity Upgraded 6 Descriptor Resisted forearm sup/pronation Side Right Body Position Sitting Sets 2 Repetitions 10 Resistance Provided by therapist Complexity Upgraded 5 Descriptor Resisted finger abd/add Side Right Body Position Sitting Sets 2 Repetitions 10 Resistance Provided by therapist Complexity Upgraded 4 Descriptor Resisted wrist movements RD, UD, flexion, extension Side Right Body Position Sitting Sets 2 Repetitions 10 Resistance Provided by therapist Complexity Upgraded 3 Descriptor Resisted digit ext/flex (exclusion of 5th digit) Side Right Body Position Sitting Sets 2 Repetitions 10 Resistance Provided by therapist Complexity Upgraded 2 Descriptor Active tendon gliding exercises Complexity No Change 1 Descriptor HEP Instructed in isolated movement of each digit of the R hand; instructed in separation of the 2 sides of the hand (radial and ulnar side w/ and w/out resistance applied). Instructed in gross grasp strengthening utilizing glove w/ theraputty. Provided pt w/ personal medium firm green theraputty. Pt denied questions. Complexity Upgraded - Assessment Patient Response to Treatment Good Rehab Potential Good Impairments Identified ADLs Coordination/Dexterity Flexibility Functional Activities Integumentary Status Motor Function Weakness Range of Motion Recreational Activities Meaningful Activities Stiffness Swelling Soft Tissue Mobility Motor Planning Eye-Hand Coordination Assessment of Overall Progress Improving Assessment of Improvement Upgraded HEP. Impaired motor planning of the digits of the affected hand; poor dissociation between 2 sides of the hand. Decreased strength and ROM of the 5th digit. Home Exercise Program Please refer to treatment section of note for specific details. Upgraded on this date . Reviewed with Patient/Caregiver Goals Progress Being Made Home Exercise Program Patient/Caregiver Understanding Good - Plan Therapy Recommendations Continue with Current Program Advance per Rehabilitation Protocol Occupational Therapy Assessment OT Outpatient Range of Motion Start: 07/20/18 09:42 Freq: Status: Active Protocol: Document 08/04/18 16:01 AMS (Rec: 08/04/18 16:17 AMS [email or web address]) ROM - Finger Goniometric Finger Measured in Degrees Left Fifth Finger ROM WFL Yes Left Fourth Finger ROM WFL Yes Left Third Finger ROM WFL Yes Right Fifth Finger ROM WFL No MCP Flexion Active (degrees) 90 MCP Extension Active (degrees) 40 PIP Flexion Active (degrees) 80 PIP Extension Active (degrees) 5 DIP Flexion Active (70-90 degrees) 50 L DIP Extension Active (0 degrees) 0 H Right Fourth Finger ROM WFL No MCP Flexion Active (degrees) 103 MCP Extension Active (degrees) 10 PIP Flexion Active (degrees) 97 PIP Extension Active (degrees) 0 DIP Flexion Active (70-90 degrees) 72 DIP Extension Active (0 degrees) 0 H Right Third Finger ROM WFL No MCP Flexion Active (degrees) 120 MCP Extension Active (degrees) 53 PIP Flexion Active (degrees) 120 PIP Extension Active (degrees) 0 DIP Flexion Active (70-90 degrees) 83 DIP Extension Active (0 degrees) 0 H Right Second Finger ROM WFL No MCP Flexion Active (degrees) 112 MCP Extension Active (degrees) 53 PIP Flexion Active (degrees) 120 PIP Extension Active (degrees) 0 DIP Flexion Active (70-90 degrees) 77 DIP Extension Active (0 degrees) 0 H Left Second Finger ROM WFL Yes ROM Limitations Comments Initial evaluation: R 2nd PIPJ 0-113 R 2nd DIPJ 0-63 R 5th MCPJ hyperext 0-8 R 5th MCPJ flex 0-80 R 5th PIPJ flex/ext 0-80 R 5th DIPJ flex/ext 0-53 08/04/18 = -5 ext 5th PIPJ New measurements taken for 5th digit on this date given wound healing Occupational Therapy Assessment OT Outpatient Muscle Testing Start: 07/20/18 09:42 Freq: Status: Active Protocol: Document 08/04/18 16:01 AMS (Rec: 08/04/18 16:17 AMS [email or web address]) Elbow/Forearm Strength Elbow and Forearm Manual Muscle Testing Left Pronation 5 Normal Supination 5 Normal Comments Measurements taken 07/29/18 Right Pronation 4+ Good+ Supination 4- Good- Comments Measurements taken 07/29/18 Wrist Strength Wrist Manual Muscle Testing Left Flexion (C7) 5 Normal Extension (C6) 5 Normal Ulnar Deviation 5 Normal Radial Deviation 5 Normal Comments Measurements taken 07/29/18 Right Flexion (C7) 4- Good- Extension (C6) 3+ Fair+ Ulnar Deviation 3+ Fair+ Radial Deviation 4- Good- Comments Measurements taken 07/29/18 Finger/Thumb Strength Finger Manual Muscle Testing Right Fifth Flexion (fingers C8) 3+ Fair+ Extension (thumb C8) 3 Fair Adduction 3 Fair Abduction (fingers T1) 3 Fair Comments Measurements taken 08/04/18 Right Second Flexion (fingers C8) 4- Good- Extension (thumb C8) 4- Good- Adduction 4- Good- Abduction (fingers T1) 4- Good- Comments Measurements taken 07/29/18 Right Third Flexion (fingers C8) 4 Good Extension (thumb C8) 4 Good Adduction 4 Good Abduction (fingers T1) 4 Good Comments Measurements taken 07/29/18 Right Fourth Flexion (fingers C8) 3+ Fair+ Extension (thumb C8) 3+ Fair+ Adduction 3+ Fair+ Abduction (fingers T1) 3+ Fair+ Comments Measurements taken 07/29/18
--- NOTE | 2018-08-13 07:40 | OT.OP.TRT ---
Visit Care Team Role Provider Type Roberto Angulo MD Attending Provider Non-Staff Primary Care Provider Specialty: Family Practice Address: [address] [place] [address], [place], [address] Email: Occupational Therapy Treatment Note OT Outpatient Treatment Note - Adult Start: 07/20/18 09:42 Freq: Status: Active Protocol: Document 08/12/18 13:30 AMS (Rec: 08/13/18 07:40 AMS [email or web address]) OT Outpatient Adult Treatment Note Session Time Visit Start Time 12:30 Visit Stop Time 13:15 Total Visit Minutes 45 Visit Information Visit Number [id number] Plan of Care Dates 07/15/18-10/07/18 Insurance Information ; 12 visits authorized Setting Treatment Setting Outpatient Care Visit Type Note Type Treatment Note General Information General Information 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 Patient reported that he was wearing the appropriate gloves; however, the gloves became saturated and he suffered a burn. By July 09, pt's right hand and fingers were significantly more swollen then day of initial onset of symptoms. Thus, he was taken to the ER. He was transferred from [facility] to [facility]. At [facility] he underwent surgical debridement. Since debridement, pt has been changing dressings daily and intermittently completing range of motion exercises throughout the day (prayer pose, fist, and hook fist). Pt has appt w/ wound care clinic following OT initial evaluation today. Pt completed [facility] Health History form. Completed form placed in paper chart; pt indicated taking Oxycodone for pain (10 mg). - Subjective Identification Type Name Picture Observations I have returned to full-time active duty. I wear a glove on this hand when I am at work per Jay. Chief Complaint(s) Restricts Loss of Function Marked Degree Effect on Activity Marked Degree Effect on Daily Life Marked Degree Patient/Caregiver Compliance with Home Good Exercise Program - Objective Objective Measurements Pictures taken on R hand; placed in paper chart. Poor dissociation between ulnar and radial sides of hand; impaired coordination of digits of right hand. Decreased ability to isolate active flex of 5th DIPJ; (+) response to [id number] exercises w/ use of table. Able to hold x 5 sec w/ increased focus on concentration. Increased stiffness of 5th digit and tendency towards slight flex at PIPJ of 5th digit at rest w / rotational component. (+) scar volar surface of R 5th digit, prox to PIPJ medial location; (-) raised presentation; min thickness and (+) tightness. Need for scar tissue mobilization. Short Term Goals 1. 0-80 degrees R second digit DIPJ AROM. 07/22/18= GOAL UPGRADED 2. 0-20 degrees R fourth digit MCPJ active hyperextension. = GOAL UPGRADED 3. 0-20 degrees R fifth digit MCPJ active hyperextension. 10/27= GOAL UPGRADED 4. 0-90 degrees R fifth digit MCPJ active flexion. 07/22/18= New Goal 5. 0-90 degrees R fifth digit PIPJ active flexion. 07/22/18= New Goal 6. 0-70 degrees R fifth digit DIPJ active flexion. 07/22/18= New Goal 7. Pt will be able to execute straight fist x 5 repetitions with R hand, without use of compensatory patterns, in preparation for large object manipulation with active engagement of the 5th digit. 08/12/18= 50% met GOALS MET 0-70 degrees R second digit DIPJ AROM *MET 07/22/18 (0-77) 0-10 degrees R second digit MCPJ active hyperextension * MET 07/22/18 (0-53) 0-10 degrees R third digit MCPJ active hyperextension * MET 07/22/18 (0-53) 0-10 degrees R fourth digit MCPJ active hyperextension * MET 07/22/18 (0-10) Wallpaper Printer Goals 1. Pt will demonstrate improved functional abilities of non-dominant R hand, as evidenced by score of 5.0 or less on QuickDASH UE Outcome Measure. 2. Pt will be mod I with HEP. 08/12/18= HEP upgraded GOALS MET Return to full-time active duty without restrictions. * MET 08/12/18. Wears a glove while in clinic - Exercises 8 Descriptor Coordination of digits of the R hand. Bear claw Complexity Upgraded 7 Descriptor ROM by therapist Digits 1-5 Complexity Upgraded 5 Descriptor Theraputty Ext Adduction Hook Flat fist Side Right Body Position Sitting Sets 1 Repetitions 10 Resistance Green theraputty Complexity Upgraded 2 Descriptor Active tendon gliding exercises Complexity No Change 1 Descriptor HEP Instructed in strengthening utilizing theraputty; exercises recommended included resisted hook fist, resisted flat fist, resisted extension and resisted abduction. Instructed in vfnjw-[id number] for DIPJ flex; instructed in passive DIPJ flex w/ joint blocking/use of table. Instructed in scar tissue mobilization to soften scar. Pt denied questions. Complexity Upgraded Manual Therapy Manual Therapy Min palmar tightness radially. Began scar tissue mobilization and education. Joint mobs w/ focus on 5th digit; flex/ext of joints of 5th digit in different positions; abd of 5th digit. - Assessment Patient Response to Treatment Good Rehab Potential Good Impairments Identified ADLs Coordination/Dexterity Flexibility Functional Activities Integumentary Status Motor Function Weakness Range of Motion Recreational Activities Meaningful Activities Stiffness Swelling Soft Tissue Mobility Motor Planning Eye-Hand Coordination Assessment of Overall Progress Improving Assessment of Improvement Upgraded HEP. Improving functional abilities of non- dominant right hand. Decreased motor planning of the R hand, particularly R 5th digit. (+) tendency towards flex at IPJ at rest of 5th digit. (+) mild edema. (+) scar tissue presence w/ need for scar tissue mobilization to improve upon range of motion/decrease stiffness of digits of right hand. Decreased strength of R hand. 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 Home Exercise Program Please refer to treatment section of note for specific details. Upgraded on this date . Reviewed with Patient/Caregiver Goals Progress Being Made Home Exercise Program Patient/Caregiver Understanding Good - Plan Therapy Recommendations Continue with Current Program Advance per Rehabilitation Protocol Occupational Therapy Assessment OT Outpatient Modality Start: 07/20/18 09:42 Freq: Status: Active Protocol: Document 08/12/18 13:30 AMS (Rec: 08/13/18 07:40 AMS [email or web address]) OT Outpatient Modality Treatment Right Little Finger Name of Modality Ultrasound Duration (Minutes) 8 Body Position Sitting Comments 2.3 w/cm2; 20% duty cycle Skin intact pre and post treatment Ultrasound to volar proximal surface 5th digit w/ focus on swelling management Occupational Therapy Assessment OT Outpatient Muscle Testing Start: 07/20/18 09:42 Freq: Status: Active Protocol: Document 08/12/18 13:30 AMS (Rec: 08/13/18 07:40 [facility] [email or web address]) Elbow/Forearm Strength Elbow and Forearm Manual Muscle Testing Left Pronation 5 Normal Supination 5 Normal Comments Measurements taken 07/29/18 Right Pronation 4+ Good+ Supination 4- Good- Comments Measurements taken 07/29/18 Wrist Strength Wrist Manual Muscle Testing Left Flexion (C7) 5 Normal Extension (C6) 5 Normal Ulnar Deviation 5 Normal Radial Deviation 5 Normal Comments Measurements taken 07/29/18 Right Flexion (C7) 4- Good- Extension (C6) 3+ Fair+ Ulnar Deviation 3+ Fair+ Radial Deviation 4- Good- Comments Measurements taken 07/29/18 Finger/Thumb Strength Finger Manual Muscle Testing Right Fifth Flexion (fingers C8) 3+ Fair+ Extension (thumb C8) 3 Fair Adduction 3 Fair Abduction (fingers T1) 3 Fair Comments Measurements taken 08/04/18 Right Second Flexion (fingers C8) 4- Good- Extension (thumb C8) 4- Good- Adduction 4- Good- Abduction (fingers T1) 4- Good- Comments Measurements taken 07/29/18 Right Third Flexion (fingers C8) 4 Good Extension (thumb C8) 4 Good Adduction 4 Good Abduction (fingers T1) 4 Good Comments Measurements taken 07/29/18 Right Fourth Flexion (fingers C8) 3+ Fair+ Extension (thumb C8) 3+ Fair+ Adduction 3+ Fair+ Abduction (fingers T1) 3+ Fair+ Comments Measurements taken 07/29/18 Occupational Therapy Assessment OT Outpatient Range of Motion Start: 07/20/18 09:42 Freq: Status: Active Protocol: Document 08/12/18 13:30 AMS (Rec: 08/13/18 07:40 [facility] [email or web address]) ROM - Finger Goniometric Finger Measured in Degrees Left Fifth Finger ROM WFL Yes Left Fourth Finger ROM WFL Yes Left Third Finger ROM WFL Yes Right Fifth Finger ROM WFL No MCP Flexion Active (degrees) 90 MCP Extension Active (degrees) 40 PIP Flexion Active (degrees) 80 PIP Extension Active (degrees) 5 DIP Flexion Active (70-90 degrees) 50 L DIP Extension Active (0 degrees) 0 H Right Fourth Finger ROM WFL No MCP Flexion Active (degrees) 103 MCP Extension Active (degrees) 10 PIP Flexion Active (degrees) 97 PIP Extension Active (degrees) 0 DIP Flexion Active (70-90 degrees) 72 DIP Extension Active (0 degrees) 0 H Right Third Finger ROM WFL No MCP Flexion Active (degrees) 120 MCP Extension Active (degrees) 53 PIP Flexion Active (degrees) 120 PIP Extension Active (degrees) 0 DIP Flexion Active (70-90 degrees) 83 DIP Extension Active (0 degrees) 0 H Right Second Finger ROM WFL No MCP Flexion Active (degrees) 112 MCP Extension Active (degrees) 53 PIP Flexion Active (degrees) 120 PIP Extension Active (degrees) 0 DIP Flexion Active (70-90 degrees) 77 DIP Extension Active (0 degrees) 0 H Left Second Finger ROM WFL Yes ROM Limitations Comments Initial evaluation: R 2nd PIPJ 0-113 R 2nd DIPJ 0-63 R 5th MCPJ hyperext 0-8 R 5th MCPJ flex 0-80 R 5th PIPJ flex/ext 0-80 R 5th DIPJ flex/ext 0-53 08/04/18 = -5 ext 5th PIPJ New measurements taken for 5th digit on this date given wound healing
--- NOTE | 2018-09-03 13:55 | OT.OP.DC ---
Visit Care Team Role Provider Type Roberto Angulo MD Attending Provider Non-Staff Primary Care Provider Address: [address] [place] [address], [place], [address] Email: OT Outpatient OT Outpatient Adult Evaluation Start: 07/20/18 09:42 Freq: Status: Active Protocol: Document 07/15/18 13:48 AMS (Rec: 07/20/18 10:38 AMS [email or web address]) General Information Session Time Visit Start Time 12:30 Visit Stop Time 13:15 Total Visit Minutes 45 Visit Information Visit Number 11/[id number] Plan of Care Dates 07/15/18-10/07/18 Insurance Information ; 12 visits authorized Setting Treatment Setting Outpatient Care Visit Type Note Type Initial Evaluation Referral Referring Physician Roberto Angulo MD Reason for Referral Chemical burn to right hand, fingers. 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 Patient reported that he was wearing the appropriate gloves; however, the gloves became saturated and he suffered a burn. By July 09, pt's right hand and fingers were significantly more swollen then day of initial onset of symptoms. Thus, he was taken to the ER. He was transferred from [facility] to [facility]. At [facility] he underwent surgical debridement. Since debridement, pt has been changing dressings daily and intermittently completing range of motion exercises throughout the day (prayer pose, fist, and hook fist). Pt has appt w/ wound care clinic following OT initial evaluation today. Pt completed [facility] Health History form. Completed form placed in paper chart; pt indicated taking Oxycodone for pain (10 mg). Previous Therapy History of Therapy Instructed on basic range of motion exercises at time of debridement. No other therapy. See above. Therapy Pain Assessment Pain When Pain Assessed pre-tx Pain Present Pain Present Pain Reported Location Right Finger Intensity 2 Scale Used Numeric (1 - 10) Patient Questionnaires Quick Dash- Upper Extremity Quick Dash UE Score 72.7 Quick Dash UE Impairment 60 to 79% Impaired (Score 60- 79) IADLs Overall Function Comments Impaired Vocation Vocational Ability Duties modified Skill Level Impaired Integument Wounds Observations Pictures taken at time of initial evaluation. See paper chart for details. Bandaging removed and replaced w/ new bandages. Bandaging of 5th digit not removed on this treatment date; will remove bandaging and begin treatment as appropriate (increased healing of wound). Receiving Wound Care Yes Observations Swelling Swelling Location R hand/digits Functional Wrist/Hand Scan Hand Side Standard Fist Yes/No No: Impaired Comment Right Hook Grasp Yes/No No: Stiffness of digits present Comment Right Straight Fist Yes/No No: Impaired Comment Right Impressions Overall Observations Stiffness of digits of R hand due to wounds. Adduction/piggy backing of the R 5th digit observed w/ formation of straight fist and standard fist. Goals Objective Measurements Objective Measurements Decreased frequency w/ execution of recommended home exercises/ROM. Preference for active vs passive ROM exercises at this time (thus, prayer pose modified to increase compliance). Guarding of R hand/digits. Protective posturing. Treatment Treatment Home exercise program initiated. Focus on active range of motion and reviewed importance of completing range of motion exercise on a hourly, daily basis. Continued hook fist, standard fist recommended, as well as TT w/ R hand blocking and use of towel and active digit extension use of TT. Patient denied questions. Short Term Goals Short Term Goals 1. 0-70 degrees R second digit DIPJ AROM 2. 0-10 degrees R second digit MCPJ active hyperextension 3. 0-10 degrees R third digit MCPJ active hyperextension 4. 0-10 degrees R fourth digit MCPJ active hyperextension 5. Pt will be able to execute straight fist x 5 repetitions with the right hand, without use of compensatory patterns, in preparation for large object manipulation with active engagement of the 5th digit. Timber Killer Goals [facility]fp Goals 1. Pt will be able to return to full-time active duty without restrictions. 2. Pt will demonstrate improved functional abilities of non-dominant R hand, as evidenced by score of 5.0 or less on QuickDASH UE Outcome Measure. 3. Pt will be mod I with HEP. 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 Patient reported that he was wearing the appropriate gloves; however, the gloves became saturated and he suffered a burn. By July 09, pt's right hand and fingers were significantly more swollen then day of onset . Thus, he was taken to the ER . He was transferred from [facility] to [facility]. At [facility] he underwent surgical debridement. Since debridement, pt has been changing dressings daily and intermittently completing range of motion exercises throughout the day (prayer pose, fist, and hook fist). Pt has appt w/ wound care clinic following OT initial evaluation today. Pt indicated taking Oxycodone for pain (10 mg). PMH: Nothing listed PLOF: Independent w/ completion of BADLS and IADLS; active duty w/ no restrictions. Evaluation findings: L hand dominant young male; wounds of the R hand; (+) changing of dressings on daily basis as per recommended; decreased frequency of completion of home range of motion exercises ; adduction/piggy backing of the R 5th digit observed w/ formation of fist; preference for active vs passive ROM exercises at this time (thus, prayer pose modified); pain at rest; stiffness of digits/ hand; decreased range of motion of digits of R hand; protective/guarding of R hand; swelling of R hand; decreased independence w/ active engagement in daily meaningful activities. Pt would likely benefit from skilled outpt OT to increase functional independence and ability to engage in meaningful activities without limitations, including active duty assignments, with active incorporation of the right hand. Home Exercise Program Home exercise program initiated. Focus on active range of motion and reviewed importance of completing range of motion exercise on a hourly, daily basis. Continued hook fist, standard fist recommended, as well as TT w/ R hand blocking and use of towel and active digit extension use of TT. Patient denied questions. Plan Comment 12 wks; dependent upon rate of healing of wounds Treatment Frequency Once a Week Comment increase to 2 x wk; as wounds heal Therapeutic Contents Active Range of Motion Client Education Functional Activities Home Exercise Program Manual Therapy Education Neuromuscular Re-Education Self-Care Stretching/Flexibility Activities Therapeutic Activities Therapeutic Exercises Modalities Sensory Re-education Modalities As Needed As Prescribed Types of Modalities Contrast Bath E-Stim Functional Stimulation (FES) Ice Massage Skin Care Bandaging Ultrasound Patient Instruction Home Exercise Program Plan of Care Questions/Concerns Other Patient Recommendations Continue with Current Program Advance per Rehabilitation Protocol Other Suggested Referrals Wound care Sensory Assessment Sensory Profile2 OT Outpatient Muscle Testing Start: 07/20/18 09:42 Freq: Status: Active Protocol: Document 08/12/18 13:30 AMS (Rec: 08/13/18 07:40 AMS [email or web address]) Elbow/Forearm Strength Elbow and Forearm Manual Muscle Testing Left Pronation 5 Normal Supination 5 Normal Comments Measurements taken 07/29/18 Right Pronation 4+ Good+ Supination 4- Good- Comments Measurements taken 07/29/18 Wrist Strength Wrist Manual Muscle Testing Left Flexion (C7) 5 Normal Extension (C6) 5 Normal Ulnar Deviation 5 Normal Radial Deviation 5 Normal Comments Measurements taken 07/29/18 Right Flexion (C7) 4- Good- Extension (C6) 3+ Fair+ Ulnar Deviation 3+ Fair+ Radial Deviation 4- Good- Comments Measurements taken 07/29/18 Finger/Thumb Strength Finger Manual Muscle Testing Right Fifth Flexion (fingers C8) 3+ Fair+ Extension (thumb C8) 3 Fair Adduction 3 Fair Abduction (fingers T1) 3 Fair Comments Measurements taken 08/04/18 Right Second Flexion (fingers C8) 4- Good- Extension (thumb C8) 4- Good- Adduction 4- Good- Abduction (fingers T1) 4- Good- Comments Measurements taken 07/29/18 Right Third Flexion (fingers C8) 4 Good Extension (thumb C8) 4 Good Adduction 4 Good Abduction (fingers T1) 4 Good Comments Measurements taken 07/29/18 Right Fourth Flexion (fingers C8) 3+ Fair+ Extension (thumb C8) 3+ Fair+ Adduction 3+ Fair+ Abduction (fingers T1) 3+ Fair+ Comments Measurements taken 07/29/18 OT Outpatient Range of Motion Start: 07/20/18 09:42 Freq: Status: Active Protocol: Document 08/12/18 13:30 AMS (Rec: 08/13/18 07:40 AMS [email or web address]) ROM - Finger Goniometric Finger Measured in Degrees Left Fifth Finger ROM WFL Yes Left Fourth Finger ROM WFL Yes Left Third Finger ROM WFL Yes Right Fifth Finger ROM WFL No MCP Flexion Active (degrees) 90 MCP Extension Active (degrees) 40 PIP Flexion Active (degrees) 80 PIP Extension Active (degrees) 5 DIP Flexion Active (70-90 degrees) 50 L DIP Extension Active (0 degrees) 0 H Right Fourth Finger ROM WFL No MCP Flexion Active (degrees) 103 MCP Extension Active (degrees) 10 PIP Flexion Active (degrees) 97 PIP Extension Active (degrees) 0 DIP Flexion Active (70-90 degrees) 72 DIP Extension Active (0 degrees) 0 H Right Third Finger ROM WFL No MCP Flexion Active (degrees) 120 MCP Extension Active (degrees) 53 PIP Flexion Active (degrees) 120 PIP Extension Active (degrees) 0 DIP Flexion Active (70-90 degrees) 83 DIP Extension Active (0 degrees) 0 H Right Second Finger ROM WFL No MCP Flexion Active (degrees) 112 MCP Extension Active (degrees) 53 PIP Flexion Active (degrees) 120 PIP Extension Active (degrees) 0 DIP Flexion Active (70-90 degrees) 77 DIP Extension Active (0 degrees) 0 H Left Second Finger ROM WFL Yes ROM Limitations Comments Initial evaluation: R 2nd PIPJ 0-113 R 2nd DIPJ 0-63 R 5th MCPJ hyperext 0-8 R 5th MCPJ flex 0-80 R 5th PIPJ flex/ext 0-80 R 5th DIPJ flex/ext 0-53 08/04/18 = -5 ext 5th PIPJ New measurements taken for 5th digit on this date given wound healing OT Outpatient Treatment Note - Adult Start: 07/20/18 09:42 Freq: Status: Active Protocol: Document 09/03/18 13:53 [facility] (Rec: 09/03/18 13:55 [facility] [email or web address]) OT Outpatient Adult Treatment Note Visit Information Visit Number / Plan of Care Dates 07/15/18-10/07/18 Insurance Information ; 12 visits authorized Visit Type Note Type Discharge Summary General Information General Information 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 Patient reported that he was wearing the appropriate gloves; however, the gloves became saturated and he suffered a burn. By July 09, pt's right hand and fingers were significantly more swollen then day of initial onset of symptoms. Thus, he was taken to the ER. He was transferred from [facility] to [facility]. At [facility] he underwent surgical debridement. Since debridement, pt has been changing dressings daily and intermittently completing range of motion exercises throughout the day (prayer pose, fist, and hook fist). Pt has appt w/ wound care clinic following OT initial evaluation today. Pt completed [facility] Health History form. Completed form placed in paper chart; pt indicated taking Oxycodone for pain (10 mg). - Subjective Observations Pt has no showed the last 3 appointments. Thus, pt to be d /c from outpt OT. Therapist to re-evaluate as deemed appropriate by PCP. Discharge paperwork to be completed at this time. - Objective Short Term Goals ALL GOALS DISCHARGED OF . 1. 0-80 degrees R second digit DIPJ AROM. 07/22/18= GOAL UPGRADED 2. 0-20 degrees R fourth digit MCPJ active hyperextension. = GOAL UPGRADED 3. 0-20 degrees R fifth digit MCPJ active hyperextension. 10/27= GOAL UPGRADED 4. 0-90 degrees R fifth digit MCPJ active flexion. 07/22/18= New Goal 5. 0-90 degrees R fifth digit PIPJ active flexion. 07/22/18= New Goal 6. 0-70 degrees R fifth digit DIPJ active flexion. 07/22/18= New Goal 7. Pt will be able to execute straight fist x 5 repetitions with R hand, without use of compensatory patterns, in preparation for large object manipulation with active engagement of the 5th digit. 08/12/18= 50% met GOALS MET 0-70 degrees R second digit DIPJ AROM *MET 07/22/18 (0-77) 0-10 degrees R second digit MCPJ active hyperextension * MET 07/22/18 (0-53) 0-10 degrees R third digit MCPJ active hyperextension * MET 07/22/18 (0-53) 0-10 degrees R fourth digit MCPJ active hyperextension * MET 07/22/18 (0-10) Mcfp Goals ALL GOALS DISCHARGED OF . 1. Pt will demonstrate improved functional abilities of non-dominant R hand, as evidenced by score of 5.0 or less on QuickDASH UE Outcome Measure. 2. Pt will be mod I with HEP. 08/12/18= HEP upgraded GOALS MET Return to full-time active duty without restrictions. * MET 08/12/18. Wears a glove while in clinic - - Assessment Assessment of Improvement Pt has no showed the last 3 appointments. Thus, pt to be d /c from outpt OT. Therapist to re-evaluate as deemed appropriate by PCP. Discharge paperwork to be completed at this time. - Plan Therapy Recommendations Discharge from Occupational Therapy
== END 2019-03-18 17:55 | disposition home or self-care (01) ==
LOC: OT 12:30
PROVIDERS: PCP General Practice; Visit Provider General Practice
DX: T30.4 Corrosion of unspecified body region, unspecified degree (principal)
CPT/HCPCS: 97035; 97110; 97112; 97140; 97165